=== PATIENT | female | born 1940 | race Caucasian/White ===

== ENCOUNTER 2019-09-24 11:45 | Emergency (ER) | payer MEDICARE ==
--- NOTE | 2019-09-24 12:01 | UC ---
Hand/Wrist HPI - HPI Summary HPI Summary: 79yo female presenting with for right wrist pain after "losing her footing and falling while getting off the couch" a few hours ago. Notes swelling bruising over the wrist. Pain is better after ice and otc analgesics. Denies decreased sensation. Denies forearm and elbow pain. Denies numbness and tingling. - History Of Current Complaint Chief Complaint: UCUpperExtremity Stated Complaint: S/P FALL RIGHT WRIST INJURY Hx Obtained From: Patient - Allergies/Home Medications Allergies/Adverse Reactions: Allergies Allergy/AdvReac Type Severity Reaction Status Date / Time No Known Allergies Allergy Verified 09/24/19 12:06 PMH/Surg Hx/FS Hx/Imm Hx Neurological History: Dementia, Other - Parkinsons - Surgical History Surgical History: Yes Surgery Procedure, Year, and Place: gallbladder. partial hysterectomy - Family History Known Family History: Positive: Respiratory Disease - Social History Alcohol Use: Rare Substance Use Type: None Smoking Status (MU): Former Smoker Type: Cigarettes Amount Used/How Often: 1-2 PPD Length of Time of Smoking/Using Tobacco: 39 Years Have You Smoked in the Last Year: No When Did the Patient Quit Smoking/Using Tobacco: ~2000 - Immunization History Most Recent Influenza Vaccination: April 2016 Review of Systems All Other Systems Reviewed And Are Negative: Yes Constitutional: Positive: Negative Skin: Positive: Bruising - right wrist Respiratory: Positive: Negative Cardiovascular: Positive: Negative Neurovascular: Positive: Negative Musculoskeletal: Positive: Arthralgia - right wrist, Decreased ROM, Edema Neurological/Mental Status: Positive: Negative. Negative: Paresthesia, Numbness Physical Exam - Summary Physical Exam Summary: Vital Signs Reviewed: Yes A+Ox3, no distress Eyes: Conjunctiva Clear ENT: Hearing grossly normal neck: supple Respiratory: Positive: No respiratory distress, No accessory muscle use Cardiovascular: skin color reflect adequate perfusion Musculoskeletal Exam: obvious deformity of R wrist, +pain with palpation, edema , decreased ROM wrist d/t pain, R elbow ROM intact, sensation grossly intact, 2+ radial pulses Neurological: Positive: Alert Psychological: Positive: Normal Response To Family, age appropriate behavior Skin: Positive: no rash, no ecchymosis Diagnostics - Radiology right wrist Radiology Interpretation Completed By: Radiologist Summary of Radiographic Findings: IMPRESSION: Fracture of the distal radial metaphysis with dorsal angulation and fracture of the distal ulna. Hand/Wrist Course/Dx - Course Course Of Treatment: Discussed distal radial and ulnar fractures with the patient and . I placed the patient in a sugar tong splint and sling. Instructed to follow up with orthopedics tomorrow. Patient and voiced understanding and agreed with treatment plan. - Differential Dx/Diagnosis Provider Diagnosis: Radius distal fracture, Ulna distal fracture Discharge ED - Sign-Out/Discharge Documenting (check all that apply): Patient Departure All imaging exams completed and their final reports reviewed: Yes - Discharge Plan Condition: Stable Disposition: HOME Patient Education Materials: Wrist Fracture in Adults (ED) Referrals: Baldo Go MD [Medical Doctor] - As Soon As Possible Additional Instructions: You fractured your wrist today. You received a splint, which you should leave on until you are able to follow up with orthopedics. Follow up tomorrow with the orthopedics referral listed below. Go to the emergency room if pain worsens or the hand becomes cold and numb. - Billing Disposition and Condition Condition: STABLE Disposition: Home
[2019-09-24 12:06] VITALS: BP 117/100
== END 2019-09-24 13:14 | disposition home or self-care (01) ==
LOC: UCCORT 11:45
DX: S52.501A Unspecified fracture of the lower end of right radius, initial encounter for closed fracture (principal); S52.601A Unspecified fracture of lower end of right ulna, initial encounter for closed fracture; W07.XXXA Fall from chair, initial encounter; Y92.9 Unspecified place or not applicable; G20 Parkinson's disease; F03.90 Unspecified dementia, unspecified severity, without behavioral disturbance, psychotic disturbance, mood disturbance, and anxiety; Z87.891 Personal history of nicotine dependence
CPT/HCPCS: 99211; G0463

== ENCOUNTER 2019-10-23 08:35 | Emergency (ER) | payer MEDICARE ==
--- OUTSIDE RECORDS SUMMARY | 2019-10-23 08:41 | XMS REPORT | Continuity of Care Document ---
:1940 External Reference #:[id number] Author Name Dong Ordonez MD (transmitted by agent of provider Cristina Tai) Address [address] [place] [address] Problems Active Problems Provider Date Parkinson's disease Ely Elias M.D. Onset: 07/10/2014 Anxiety disorder Ely Elias M.D. Onset: 07/10/2014 Impaired cognition Ely Elias M.D. Onset: 05/11/2017 Note: MoCA: 07/2014 23; 07/2015: 24; 03/2016: 21; 05/11/17: , 05/26: 06/07 Social History Type Date Description Comments Sex Unknown Tobacco Use Start: Unknown End: Former Cigarette Smoker 2 Unknown Packs Daily Smoking Status Reviewed: 06/27/19 Former Cigarette Smoker 2 Packs Daily ETOH Use Denies alcohol use Tobacco Use Start: Unknown End: Patient is a former smoker Unknown Recreational Drug Use Denies Drug Use Exercise Type/Frequency Exercises sporadically Allergies, Adverse Reactions, Alerts Active Allergies Reaction Severity Comments Date Memantine decline in cognitive function 08/30/2018 Inactive Allergies NKDA 03/20/2014 Medications Active Medications SIG Qnty Indications Ordering Date Provider Carbidopa-Levodopa ER take one tablet 180tabs Ely Elias, 05/28/2014 by mouth at M.D. 25-100mg Tablets ER bedtime Sertraline HCL 1.5 po qd 45tabs Ely Elias, 05/31/2012 100mg M.D. Tablets Sinemet take 1 /2 720tabs Ely Elias, 05/18/2012 25-100mg tablets by mouth M.D. Tablets three times a day, and 1 tablet at 10 am and 7 pm Aspirin As needed for Unknown 325mg Tablets pain.. Prednisolone Acetate 1 drop for left Unknown 1% eye As directed. Suspension Ventolin HFA 2 puffs by mouth Unknown four times a day 108(90Base) mcg/Act as needed Aerosol Omeprazole 1 po every day Unknown 40mg Capsules Amantadine HCL 1 by mouth in in 180tabs G20 Paulo Gonsales, 100mg the morning, and N.P. Tablets 1 in early afternoon CBD Oil Full spectrum, Unknown 500mg 0.75 cc bid orally Immunizations Description No Information Available Vital Signs Date Vital Result Comment 09/25/2019 10:03am Height 64 inches 5'4" Weight 111.00 lb Heart Rate 105 /min BP Systolic Sitting 134 mmHg BP Diastolic Sitting 86 mmHg Pain Level 5 O2 % BldC Oximetry 92 % BMI (Body Mass Index) 19.1 kg/m2 06/27/2019 11:23am Height 64 inches 5'4" Weight 110.12 lb Heart Rate 79 /min BP Systolic Sitting 108 mmHg R BP Diastolic Sitting 66 mmHg R Respiratory Rate 16 /min O2 % BldC Oximetry 96 % BMI (Body Mass Index) 18.9 kg/m2 Results Description No Information Available Procedures Date Code Description Status 09/25/2019 87346 Long Arm Cast Application Completed 09/25/2019 09143 Closed Treatment Distal Radial FX W/Manipulation Completed Medical Devices Description No Information Available Encounters Type Date Location Provider Dx Diagnosis Office Visit 06/27/2019 Junior/Krys Elias, G20 Parkinson's 11:30a Neurologic Serv Of M.D. disease [facility] R44.1 Visual hallucinations R94.02 Abnormal brain scan Office Visit 06/13/2019 Rosemary Elias, G20 Parkinson's 9:00a Neurologic Serv Of M.D. 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 06/27/2019 R44.1 Visual hallucinations Ely Elias M.D. 06/27/2019 R94.02 Abnormal brain scan Ely Elias M.D. 06/13/2019 G20 Parkinson's disease Ely Elias M.D. 06/13/2019 R44.1 Visual hallucinations Ely Elias M.D. 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 06/13/2019 F02.80 Dementia in other diseases classified Ely Elias M.D. elsewhere without beha 04/18/2019 L82.1 Other seborrheic keratosis Zac Hernandez MD 04/18/2019 R60.0 Localized edema Zac Hernandez MD 04/18/2019 D69.2 Other nonthrombocytopenic purpura Zac Hernandez MD Plan of Treatment Future Appointment(s):10/02/2019 9:45 am - Dnog Ordonez MD at [facility] at Yzcfnbgo49/15/2020 9:00 am - Zac Hernandez MD at [facility] D[facility] AT Hgthrara35/17/2020 - Dong Ordonez, MDS52.591A Other fractures of lower end of right radius, initial encounter for closed fractureNew Xrays: Wrist Right 3+ VWS, Ordered: 09/25/19Follow up:Follow up: 1 week Functional Status Description No Information Available Mental Status Description No Information Available Referrals Description No Information Available
--- OUTSIDE RECORDS SUMMARY | 2019-10-23 08:41 | XMS REPORT | Continuity of Care Document ---
:1940 External Reference #:[id number] Author Name Dong Ordonez MD (transmitted by agent of provider Jose Danile Nelson) Address [address] [place] [address] Problems Active Problems Provider Date Parkinson's disease Ely Elias M.D. Onset: 07/10/2014 Anxiety disorder Ely Elias M.D. Onset: 07/10/2014 Impaired cognition Ely Elias M.D. Onset: 05/11/2017 Note: MoCA: 07/2014 23; 07/2015: 24; 03/2016: 21; 05/11/17: , 05/26: 06/07 Social History Type Date Description Comments Sex Unknown Tobacco Use Start: Unknown End: Former Cigarette Smoker 2 Unknown Packs Daily Smoking Status Reviewed: 10/02/19 Former Cigarette Smoker 2 Packs Daily ETOH [...] Available Vital Signs Date Vital Result Comment 10/02/2019 9:37am Height 64 inches 5'4" Weight 112.00 lb Heart Rate 84 /min BP Systolic Sitting 136 mmHg BP Diastolic Sitting 82 mmHg Respiratory Rate 24 /min Pain Level 0 BMI (Body Mass Index) 19.2 kg/m2 09/25/2019 10:03am Height 64 inches 5'4" Weight 111.00 lb Heart Rate 105 /min BP Systolic Sitting 134 mmHg BP Diastolic Sitting 86 mmHg Pain Level 5 O2 % BldC Oximetry 92 % BMI (Body Mass Index) 19.1 kg/m2 Results Description No Information Available Procedures Date Code Description Status 09/25/2019 55990 Long Arm Cast Application Completed 09/25/2019 88876 Closed Treatment Distal Radial FX W/Manipulation Completed Medical Devices Description No Information Available Encounters Type Date Location Provider Dx Diagnosis Office Visit 10/02/2019 [facility] Dong Ordonez, S52.591D Oth fx of lower 9:45a at [facility] end r radius, subs for clos fx w routn heal Office Visit 06/27/2019 [place] Ely Elias, G20 Parkinson's 11:30a Neurologic Serv Of M.D. disease [facility] R44.1 Visual hallucinations R94.02 Abnormal brain scan Office Visit 06/13/2019 [place] Ely Elias, G20 Parkinson's 9:00a Neurologic Serv Of M.D. 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 F02.80 Dementia in oth diseases classd elswhr w/o behavrl disturb Office Visit 04/18/2019 2:50p [facility] AT Zac Hernandez, L82.1 Other seborrheic [place] [facility] keratosis R60.0 Localized edema D69.2 Other nonthrombocytopenic purpura Assessments Date Code Description Provider 10/02/2019 S52.591D Other fractures of lower end of right radius, Dong Ordonez MD subsequent encounter for closed fracture with routine healing 09/25/2019 S52.591A Other fractures of lower end [...] Zac Hernandez MD Plan of Treatment Future Appointment(s):10/16/2019 9:30 am - Dong Ordonez MD at [facility] at Lxteyccl58/15/2020 9:00 am - Zac eHrnandez MD at [facility] AT Lofuuurm59/24/2020 - Dong Ordonez MDS52.591D Other fractures of lower end of right radius, subsequent encounter for closed fracture withroutine healingNew Xrays:Wrist Right 3+ VWS, Ordered: 10/02/19Follow up: Follow up: 2 weeks Functional Status Description No Information Available Mental Status Description No Information Available Referrals Description No Information Available
[2019-10-23 08:57] VITALS: BP 146/86
--- NOTE | 2019-10-23 10:00 | UC ---
Hip/Pelvis Pain - HPI Summary HPI Summary: 79-year-old female with Parkinson's disease who states she fell against her dresser this morning causing an avulsion laceration to the right side of her head as well as the top of her right hand. This was an unwitnessed fall. She lives with her elderly who states when he walked into the room she was sitting on the floor. Last tetanus is unknown. She complains of pain to the right wrist and the right hip. The does not think she fell from standing distance rather she fell against the dresser and then lowered herself to the floor. Denies any neck pain. - History Of Current Complaint Chief Complaint: UCUpperExtremity Stated Complaint: RIGHT HAND,FACIAL INJURIES(FALL) Time Seen by Provider: 10/23/19 08:43 Hx Obtained From: Patient, Family/Shipping And Receiving Specialist Hx From Patient Unobtainable Due To: Dementia ?: No Onset/Duration: Sudden Onset Timing: Constant Severity Initially: Mild Severity Currently: Mild Pain Intensity: 5 Character Of Pain: Aching - Right hip and right wrist Aggravating Factor(s): Movement, Weight Bearing Alleviating Factor(s): Rest Associated Signs And Symptoms: Positive: Bruising - Bruising to dorsum of right hand. - Allergies/Home Medications Allergies/Adverse Reactions: Allergies Allergy/AdvReac Type Severity Reaction Status Date / Time No Known Allergies Allergy Verified 09/24/19 12:06 Home Medications: Home Medications Amantadine CAP* [Symmetrel CAP*] 100 mg PO SEE INSTRUCTIONS 07/15/16 [History Confirmed 10/23/19] Carbidopa/Levodop 25/100 MG(*) [Sinemet 25/100 TAB(*)] 1 tab PO SEE INSTRUCTIONS 07/15/16 [History Confirmed 10/23/19] Carbidopa/Levodop CR 50/200(*) [Sinemet CR 50/200(*)] 0.5 tab PO TID 07/15/16 [ History Confirmed 10/23/19] Omeprazole CAP (NF) [Prilosec CAP* 20 MG] 40 mg PO DAILY 07/15/16 [History Confirmed 10/23/19] Sertraline* [Zoloft*] 150 mg PO DAILY 07/15/16 [History Confirmed 10/23/19] Carbidopa/Levodopa ER 25/100 [Carbidopa-Levo ER 25-100 Tab] 1 tab PO BEDTIME [History Confirmed 10/23/19] PMH/Surg Hx/FS Hx/Imm Hx Previously Healthy: Yes Respiratory History: COPD Neurological History: Dementia, Other - Parkinsons' - Surgical History Surgical History: Yes Surgery Procedure, Year, and Place: gallbladder. partial hysterectomy - Family History Known Family History: Positive: Respiratory Disease - Social History Alcohol Use: Rare Substance Use Type: None Smoking Status (MU): Former Smoker Type: Cigarettes Amount Used/How Often: 1-2 PPD Length of Time of Smoking/Using Tobacco: 39 Years Have You Smoked in the Last Year: No When Did the Patient Quit Smoking/Using Tobacco: ~2000 - Immunization History Most Recent Influenza Vaccination: April 2016 Most Recent Tetanus Shot: unknown Review of Systems All Other Systems Reviewed And Are Negative: Yes Skin: Positive: Other - Patient has a skin avulsion to right jewish area and is skin avulsion to the dorsum of right hand. Bleeding is controlled. Musculoskeletal: Positive: Other: - Right wrist pain and hip pain. The patient recently had a broken wrist. Is Patient Immunocompromised?: No Physical Exam Triage Information Reviewed: Yes Appearance: Well-Appearing, No Pain Distress, Well-Nourished Vital Signs: Initial Vital Signs Temp 98.1 F 10/23/19 08:49 Pulse 84 10/23/19 08:49 Resp 24 10/23/19 08:49 BP 146/86 10/23/19 08:49 Pulse Ox 98 10/23/19 08:49 Vital Signs Reviewed: Yes Eyes: Positive: Conjunctiva Clear Neck exam: Normal Neck: Positive: Supple, Nontender - C-spine nontender Respiratory: Positive: Chest non-tender, Lungs clear, Normal breath sounds, No respiratory distress Cardiovascular: Positive: RRR, No Murmur, Pulses Normal, Brisk Capillary Refill Musculoskeletal: Positive: Strength Intact, ROM Intact, No Edema, Other: - Right wrist is mildly bruised and tender on palpation. No deformity is noted. Right hip has minimal tenderness on firm palpation. Mild pain with range of motion. Neurological: Positive: Alert - Patient is alert and sometimes answers questions appropriately sometimes not., Muscle Tone Normal - Muscle tone is normal for age. Psychological: Positive: Other: - and daughter states she is acting her normal self. Skin: Positive: Other - Skin avulsion right jewish area, superficial. Significant skin avulsion to the dorsum of her right hand exposing the tendons. The tendon itself appears intact. This was rechecked by Dr. Horton. Hip Injury Course/Dx - Course Course Of Treatment: Right wrist x-ray:FINDINGS: The bones are osteopenic. A transversely oriented fracture through the distal radius, with surrounding callus, is redemonstrated with volar apex angulation. Similar fractures through the base and tip of the ulnar styloid process are also redemonstrated. There is mild to moderate osteoarthropathy at the first CMC. IMPRESSION: The distal radial and ulnar fractures are unchanged in alignment. There is increased surrounding callus Right hip and pelvis x-ray:FINDINGS: BONE DENSITY: There is diffuse osteopenia. BONES: There is no displaced fracture. There is chronic posttraumatic deformity of the left superior pubic ramus. JOINTS: There is mild osteoarthritis of the hips and SI joints. ALIGNMENT: There is no dislocation. SOFT TISSUES: Unremarkable. OTHER FINDINGS: None. IMPRESSION: 1. OSTEOPENIA. 2. OSTEOARTHRITIS. 3. NO RADIOGRAPHIC EVIDENCE FOR HIP FRACTURE. X-RAYS MAY BE NEGATIVE WITH NONDISPLACED HIP FRACTURE, IF THERE IS PERSISTENT CLINICAL CONCERN , RECOMMEND CONSIDERATION OF MRI. IN THE SETTING OF CONTRAINDICATION TO MRI OR LIMITATION IN EMERGENT ACCESS TO MRI, CT WOULD BE SUGGESTED. The patient is comfortable here. I was able to get her a 1:45 PM appointment with a hand specialist, Dr. Jason, per consultation with Dr. Horton and her evaluation of the hand avulsion. A wet sterile dressing was applied to the wound on her hand with Coban. A bacitracin dressing was applied to the wound on her right temporal area. - Differential Dx/Diagnosis Provider Diagnosis: Sprain of wrist, right, Hip pain, right, Avulsion of skin of face, Avulsion of skin of hand Discharge ED - Sign-Out/Discharge Documenting (check all that apply): Patient Departure All imaging exams completed and their final reports reviewed: Yes - Discharge Plan Condition: Fair Disposition: HOME Referrals: Magen Evans DO [Primary Care Provider] - Romy Jason MD [Medical Doctor] - Additional Instructions: Keep the dressing on. You have a 1:45pm appointment today with Dr. Jason. You received a Tdap tetanus immunization which is good for 8-10 years. - Billing Disposition and Condition Condition: FAIR Disposition: Home
[2019-10-23] MEDS ORDERED: Tetan/Diph/Pertus SYR(Tdap)* 0.5 ML SYR(BOOSTRIX) use SYR contains LATEX IM ONE (10:09)
== END 2019-10-23 11:13 | disposition home or self-care (01) ==
LOC: UCCORT 08:35
DX: S01.81XA Laceration without foreign body of other part of head, initial encounter (principal); S61.411A Laceration without foreign body of right hand, initial encounter; S63.591A Other specified sprain of right wrist, initial encounter; S73.101A Unspecified sprain of right hip, initial encounter; M85.89 Other specified disorders of bone density and structure, multiple sites; J44.9 Chronic obstructive pulmonary disease, unspecified; G20 Parkinson's disease; F02.80 Dementia in other diseases classified elsewhere, unspecified severity, without behavioral disturbance, psychotic disturbance, mood disturbance, and anxiety; Z79.899 Other long term (current) drug therapy; Z87.891 Personal history of nicotine dependence; W19.XXXA Unspecified fall, initial encounter; Y92.9 Unspecified place or not applicable
CPT/HCPCS: 90715; 99213; G0463